=== PATIENT | male | born 1955 | race Caucasian/White ===

== ENCOUNTER → 2024-06-19 12:49 | Outpatient (CLI) | payer MEDICARE, OTHER, SELFPAY ==
--- NOTE | 2024-08-13 08:37 | DIAB.MNT ---
Initial Diabetes Medical Nutrition Therapy Assessment Name: Yaniv Hutson Date: 06/19/24 Time: 1-220p Dx: Type II Diabetes Provider: Matt Preferred Learning Style: Listening, Watching, Reading, Doing Sharlene presents for initial visit, accompanied by spouse. Endorses borderline for DM over 3 years, but recent diagnosis. Denies FH of DM. No previous DM education or MNT. Has questions about weight loss today and impact on BG. Wants to know BG goals. Overall, feels DM care is going well especially with recent improved hgA1c of 6.7%. Also has questions regarding Metformin SE and timing. Up to date on eye and dental exams. Diet Recall: 9a; 2-3c cereal with milk OR veggie omelet with hashbrowns and eng muffin +/- jam 2-4p: meatloaf with veg and 1 med ear of corn sn: cookies 8p: salad with egg OR half bag popcorn sometimes granola bar, pretzel, veggie sticks or nuts water: not much OJ all day about 2-3 gulps Nomi-Aid diet soda Anthropometrics: Ht: 5'11 Wt: 232# reported Weight history: Physical Activity: Walking 1-2s per week inconsistently reported Self-Monitoring Blood Glucose: Daily checks. Checking FBG with recent readings 122, 127, 139, 140, 143, 140, 149, 132 mg/dl. Endorses a number of ERROR messages in checking BG. Unsure of goals of BG per report. Diabetes Medications: Metformin XR 1000mg in am Pertinent Labs: HgA1c: 8.5% 01/2024 6.7% 05/2024 Past Medical History: (Last Reviewed 07/04/22 @ 14:34 by Andre Peterson MD) Claustrophobia (~1957) Insomnia, psychophysiological (~1957) Obesity (BMI 30-39.9) Obstructive sleep apnea Nutrition Rx: Carbohydrates: Meal:45g Snack:15-30g Nutrition Diagnosis: - Nutrition and food related knowledge deficit r/t new dx aeb pt report and hgA1c >6.5% Intervention: This participant was very receptive. Provided appropriate educational handouts. Discussed the following topics: Completed intake assessment. Discussed barriers to care. Pathophysiology of T2DM HgA1c, its correlation to blood glucose numbers, and rationale for goal Importance of self-monitoring, how often, and when to check. Suggested checking at different times to evaluate meals, BG goals per ADA Plate Method, impact of macronutrients on blood sugar, meal timing, carbohydrate counting, pairing macronutrients and spreading out carbohydrates for better blood glucose management Recommended servings for carbohydrates at meals and snacks Heart health nutrition Brainstormed appropriate meal/snack ideas on food preferences Role of physical activity and following provider guidelines for safety Metformin SE and reducing with taking with food, action of med and timing Weight loss and impact on insulin resistance Created SMART goals for patient self-care and success. Goals: Reduce cereal portion Think about adding protein to breakfast Incorporate consistent walks 1-2x per week Avoid sugar beverages Follow-up: [facility] follow-up prn per request of pt. Encouraged him to call or message with questions or f/u needs prn. He agreed. Macy John RDN, [facility] Certified Diabetes Care and [employer] P: [phone] Thank you for this referral
== END ==
PROVIDERS: PCP Nurse Practitioner Family; Referring Provider Nurse Practitioner Family
DX: E11.9 Type 2 diabetes mellitus without complications (principal); Z71.3 Dietary counseling and surveillance
CPT/HCPCS: 97802